=== PATIENT | male | born 1950 | race Caucasian/White ===

== ENCOUNTER 2025-04-05 12:03 | Emergency (ER) | payer MEDICARE, SELFPAY ==
[2025-04-05] VITALS (29 sets, daily range): BP systolic 161–212; BP diastolic 83–113; PULSE 54–67; TEMP 37; O2SAT 87–96; BMI 27.4
--- NOTE | 2025-04-05 12:22 | CT_ITS ---
The [address] [address] Patient Name: CHIO SALCEDO MRN: [id number] date: 1950 Sex: M Assigned Patient Location: ER Current Patient Location: ER Accession/Order Number: [id number] Exam Date: 04/05/2025 12:40 Report Date: 04/05/2025 13:13 At the request of: NEGRITO YOUNG MD Procedure: CT stroke head/brain wo con CT BRAIN /stroke WITHOUT CONTRAST: CLINICAL HISTORY: unable to focus vision, left-sided weakness COMPARISON: None TECHNIQUE: Contiguous axial unenhanced images were obtained through the brain. This CT exam was performed using one or more following dose reduction techniques: Automated exposure control, adjustment of the mA and/or kV according to patient size, or use of iterative reconstruction technique. FINDINGS: There is no evidence of midline shift, intra or extra-axial fluid collection, hemorrhage or CT evidence of acute large vascular distribution stroke. Central involutional changes and chronic small ischemic disease. Vascular calcification Visualized intraorbital contents appear unremarkable. Visualized paranasal sinuses are clear. The surrounding soft tissues are normal. CT/CT stroke head/brain wo con IMPRESSION: NO ACUTE INTRACRANIAL ABNORMALITY. CHRONIC MICROVASCULAR CHANGES Discussed with Clari over the telephone 1312 hours 04/05/2025 Impression dictated by: Gustavo Brooks M.D. 04/05/2025 1:13 PM Dictation Location: [place] [address] Electronically authenticated by: [id number] Y Date: 04/05/2025 13:13
--- NOTE | 2025-04-05 13:12 | CT_ITS ---
The [address] [address] Patient Name: CHIO SALCEDO MRN: [id number] date: 1950 Sex: M Assigned Patient Location: ED.MAIN Current Patient Location: ED.MAIN Accession/Order Number: [id number] Exam Date: 04/05/2025 14:10 Report Date: 04/05/2025 14:55 At the request of: NEGRITO YOUNG MD Procedure: CT angio head CT angiogram head and neck performed with contrast INDICATION: Left sided weakness stroke alert COMPARISON: None TECHNIQUE: CT angiogram images through the head and neck. Coronal and sagittal and 3-D reconstructions were performed. Evaluation degree of ICA narrowing was performed utilizing NASCET criteria. This CT exam was performed using one or more following dose reduction techniques: Automated exposure control, adjustment of the mA and/or kV according to patient size, or use of iterative reconstruction technique. FINDINGS: Two-vessel arch. Great vessels are patent. Common carotid arteries, carotid radiation and cervical ICAs are patent throughout their course. There is moderate plaque both bifurcations with without significant narrowing Codominant vertebral arteries. Intracranial ICAs are patent. Mild plaque intracranial ICAs. ACAs are patent. There is a 3 x 3 mm aneurysm involving the anterior communicating artery. MCAs are patent. Distal vertebral arteries, basilar artery, basilar tip and basilar bifurcation patent. 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 No Additional large vessel occlusion. 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 Discussed with Clari 1449 HOURS Impression dictated by: Gustavo Brooks M.D. 04/05/2025 2:55 PM Dictation Location: [place] [address] Electronically authenticated by: [id number] Y Date: 04/05/2025 14:55
--- NOTE | 2025-04-05 13:12 | CT_ITS ---
The [address] [address] Patient Name: CHIO SALCEDO MRN: [id number] date: 1950 Sex: M Assigned Patient Location: ED.MAIN Current Patient Location: ED.MAIN Accession/Order Number: [id number] Exam Date: 04/05/2025 14:10 Report Date: 04/05/2025 14:55 At the request of: NEGRITO YOUNG MD Procedure: CT angio head CT angiogram head and neck performed with contrast INDICATION: Left sided weakness stroke alert COMPARISON: None TECHNIQUE: CT angiogram images through the head and neck. Coronal and sagittal and 3-D reconstructions were performed. Evaluation degree of ICA narrowing was performed utilizing NASCET criteria. This CT exam was performed using one or more following dose reduction techniques: Automated exposure control, adjustment of the mA and/or kV according to patient size, or use of iterative reconstruction technique. FINDINGS: Two-vessel arch. Great vessels are patent. Common carotid arteries, carotid radiation and cervical ICAs are patent throughout their course. There is moderate plaque both bifurcations with without significant narrowing Codominant vertebral arteries. Intracranial ICAs are patent. Mild plaque intracranial ICAs. ACAs are patent. There is a 3 x 3 mm aneurysm involving the anterior communicating artery. MCAs are patent. Distal vertebral arteries, basilar artery, basilar tip and basilar bifurcation patent. 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 No Additional large vessel occlusion. 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 Discussed with Clari 1449 HOURS Impression dictated by: Gustavo Brooks M.D. 04/05/2025 2:55 PM Dictation Location: [place] [address] Electronically authenticated by: [id number] Y Date: 04/05/2025 14:55
--- NOTE | 2025-04-05 13:21 | ECG_ITS ---
The [facility] Test Date: 2025-04-05 Pat Name: CHIO SALCEDO Department: Room: - Gender: Male [employer]: : 1950 Requested By: [id number] Order Number: [id number] Reading MD: KARYNA GRULLON M.D. Measurements Intervals [place] Rate: 57 P: 26 UT: 186 QRS: 29 QRSD: 88 T: 68 QT: 414 QTc: 409 Interpretive Statements 1100 Sinus rhythm 1102 Sinus arrhythmia 9110 normal ECG No previous ECG available for comparison Electronically Signed On 04-05-2025 14:01:55 EDT by KARYNA GRULLON M.D.
--- NOTE | 2025-04-05 13:21 | XR_ITS ---
[address] [address] Patient Name: CHIO SALCEDO MRN: [id number] date: 1950 Sex: M Assigned Patient Location: ER Current Patient Location: ED.MAIN Accession/Order Number: [id number] Exam Date: 04/05/2025 13:30 Report Date: 04/05/2025 13:56 At the request of: NEGRITO YOUNG MD Procedure: XR chest 1V PA CHEST: CLINICAL HISTORY: CVA COMPARISON: None Unremarkable cardiomediastinal silhouette. Lungs are clear. No effusion or pneumothorax. Degenerative changes. XR/XR chest 1V IMPRESSION: Negative acute pleural-parenchymal disease. Impression dictated by: Gustavo Brooks M.D. 04/05/2025 1:56 PM Dictation Location: [place] [address] Electronically authenticated by: [id number] Y Date: 04/05/2025 13:56
[2025-04-05 13:31] LABS: Hematocrit 44.5 % (42.0-54.0); Hemoglobin 14.8 g/dL (14.0-18.0); Immature Granulocytes Abs Auto 0.02 10^3/uL (0.00-0.03); Immature Granulocytes Pct Auto 0.3 % (0.0-0.5); Lymphocytes Absolute Auto 3.0 10^3/uL (1.2-3.8); Mean Corpuscular HGB Conc 33.3 g/dL (29.9-35.2); Mean Corpuscular Hemoglobin 29.8 pg (25.9-34.0); Mean Corpuscular Volume 89.5 fL (80.0-94.0); Platelet Count 262 10^3/uL (150-450); Red Blood Count 4.97 10^6/uL (4.70-6.10); White Blood Count 7.9 10^3/uL (4.0-11.0)
[2025-04-05 13:37] LABS: Anion Gap 7.8; Blood Urea Nitrogen 20.0 mg/dL (7.0-18.0); Calcium 9.4 mg/dL (8.5-10.1); Carbon Dioxide 30.0 mmol/L (21.0-32.0); Chloride 104 mmol/L (98-107); Estimated GFR (African America >60 (>=60 mL/min/1.73m^2); Estimated GFR (Non-African Ame >60 (>=60 mL/min/1.73m^2); Glucose 108 mg/dL (74-106); Potassium 3.8 mmol/L (3.5-5.1); Sodium 138 mmol/L (136-145)
[2025-04-05] MEDS: ASPIRIN 81 MG TAB.CHEW 324 MG PO (13:46)
[2025-04-05] MEDS: CLOPIDOGREL BISULFATE 75 MG TABLET 300 MG PO (13:47)
[2025-04-05] MEDS: LABETALOL HCL 100 MG/20 ML MDV IVP (13:49)
--- NOTE | 2025-04-05 14:47 | ED.GENADUL1 ---
HPI HPI - General Adult General Chief complaint: Altered Mental Status Stated complaint: HARD TO FOCUS AND BODY IS TINGLING Time Seen by Provider: 04/05/25 12:17 Source: patient and family Mode of arrival: Wheelchair Limitations: no limitations History of Present Illness HPI narrative: 74-year-old male presented to the emergency department for weakness in his left arm and left leg. His gives some of the history as well as the patient. They report that about an hour before coming into the emergency department both arms started feeling tingling. He did not have his legs and did not have any headache and there was no trauma. He states it felt similar to when he had a brain bleed about 12 years ago. explains that he was intubated and was in an ICU for 3 days but it was an operable. He does not take blood thinners, in fact he does not take any medication at all. Symptoms started an hour ago and have been continuous. He states his vision is always blurred and that is not significantly different than previous. The patient tells me he has no symptoms in his legs. Related Data Home Medications ?Medication ?Instructions ?Recorded ?Confirmed No Known Home Medications 04/05/25 04/05/25 Allergies Allergy/AdvReac Type Severity Reaction Status Date / Time No Known Drug Allergies Allergy Verified 04/05/25 12:20 Review of Systems ROS Narrative A ten point review of systems is negative except as noted above. Exam Narrative Exam Narrative: Nurses note and vital signs reviewed and patient is not hypoxic. General: The patient appears in no apparent distress. Patient is resting comfortably on cart. Skin: Warm, dry, no pallor noted. There is no rash noted. Head: Normocephalic, atraumatic Eye: Normal conjunctiva, no drainage, EOMI. PERRL Ears, Nose, Mouth, and Throat: oral mucosa is moist. Nares patent. Cardiovascular: Regular Rate and Rhythm Respiratory: Patient is in no distress, no accessory muscle use, lungs are clear to auscultation, no wheezing, rales or rhonchi Back: non-tender GI: Soft and nontender Musculoskeletal: The patient has no evidence of calf tenderness, no pitting edema, symmetrical pulses noted bilaterally Neurological: A&O x4, normal speech; his right arm and right leg have intact muscle strength in all muscle groups. His left arm and left leg have significant weakness. He is able to move them but not lift them off of the bed. He has no ataxia in his right arm or right leg. Cranial nerves II through XII are intact. GCS is 15. Psychiatric: Cooperative NIH score is 4 Constitutional Vital Signs, click to edit/add: Last Vital Signs Temp 98.6 F 04/05/25 12:18 Pulse 57 L 04/05/25 14:40 Resp 14 04/05/25 14:40 BP 166/93 H 04/05/25 14:30 Pulse Ox 95 04/05/25 14:30 O2 Del Method Room Air 04/05/25 12:18 Course Vital Signs Vital signs: Vital Signs Temperature 98.6 F 04/05/25 12:18 Pulse Rate 57 L 04/05/25 12:18 Respiratory Rate 16 04/05/25 12:18 Blood Pressure 180/112 H 04/05/25 12:18 Pulse Oximetry 96 04/05/25 12:18 Oxygen Delivery Method Room Air 04/05/25 12:18 Temperature 98.6 F 04/05/25 12:18 Pulse Rate 57 L 04/05/25 14:40 Respiratory Rate 14 04/05/25 14:40 Blood Pressure 166/93 H 04/05/25 14:30 Pulse Oximetry 95 04/05/25 14:30 Oxygen Delivery Method Room Air 04/05/25 12:18 Medical Decision Making MDM Narrative Medical decision making narrative: The patient presented with strokelike symptoms with left arm and left leg weakness. NIH score is 4. 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 Case discussed with stroke team at [facility] and they are requesting the patient be flown to [facility] for intervention. They have also reviewed his CTA. The patient is agreeable and stable for transfer. Findings are discussed thoroughly with the patient and his . He is not a candidate for tPA because of previous intracranial hemorrhage. He was given aspirin and Plavix at the request of the stroke team and blood pressure control was given in the form of IV labetalol. Stroke team had requested to keep his blood pressure below 180 systolic. Differential Diagnosis Differential Diagnosis: Intracranial hemorrhage, nonhemorrhagic stroke Lab Data Lab results reviewed: Yes I reviewed the patient's lab results Labs: Lab Results 04/05/25 Range/Units 12:26 WBC 7.9 (4.0-11.0) 10^3/uL RBC 4.97 (4.70-6.10) 10^6/uL Hgb 14.8 (14.0-18.0) g/dL Hct 44.5 (42.0-54.0) % MCV 89.5 (80.0-94.0) fL MCH 29.8 (25.9-34.0) pg MCHC 33.3 (29.9-35.2) g/dL RDW 13.7 (11.0-15.0) % Plt Count 262 (150-450) 10^3/uL MPV 10.8 (9.5-13.5) fL Neut % (Auto) 48.1 (43.0-75.0) % Lymph % (Auto) 38.2 (20.5-60.0) % [facility] % (Auto) 10.6 (1.7-12.0) % Eos % (Auto) 2.2 (0.9-7.0) % Baso % (Auto) 0.6 (0.2-2.0) % Neut # (Auto) 3.8 (1.4-6.5) 10^3/uL Lymph # (Auto) 3.0 (1.2-3.8) 10^3/uL [facility] # (Auto) 0.8 (0.3-0.8) 10^3/uL Eos # (Auto) 0.2 (0.0-0.7) 10^3/uL Baso # (Auto) 0.1 (0.0-0.1) 10^3/uL Abs Immat Gran (auto) 0.02 (0.00-0.03) 10^3/uL Imm/Tot Granulo (auto) 0.3 (0.0-0.5) % Sodium 138 (136-145) mmol/L Potassium 3.8 (3.5-5.1) mmol/L Chloride 104 (98-107) mmol/L Carbon Dioxide 30.0 (21.0-32.0) mmol/L Anion Gap 7.8 BUN 20.0 H (7.0-18.0) mg/dL Creatinine 0.80 (0.70-1.30) mg/dL Est GFR ( Amer) >60 (>=60 mL/min/1.73m^2) Est GFR (Non-Af Amer) >60 (>=60 mL/min/1.73m^2) BUN/Creatinine Ratio 25.0 Glucose 108 H (74-106) mg/dL Calcium 9.4 (8.5-10.1) mg/dL Imaging Data CT scan - head: Radiologist's impression: ITS Impressions Brain CT 04/05/25 12:22 IMPRESSION: NO ACUTE INTRACRANIAL ABNORMALITY. CHRONIC MICROVASCULAR CHANGES Discussed with Clari over the telephone 1312 hours 04/05/2025 Impression dictated by: Gustavo Brooks M.D. 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 No Additional large vessel occlusion. 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 Discussed with Clari 1449 HOURS Impression dictated by: Gustavo Brooks M.D. 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 No Additional large vessel occlusion. 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 Discussed with Clari 1449 HOURS Impression dictated by: Gustavo Brooks M.D. 04/05/2025 2:55 PM Dictation Location: [facility] Electronically authenticated by: [id number] Y Date: 04/05/2025 14:55 Chest X-Ray 04/05/25 13:21 IMPRESSION: Negative acute pleural-parenchymal disease. Impression dictated by: Gustavo Brooks M.D. 04/05/2025 1:56 PM Dictation Location: [facility] Electronically authenticated by: [id number] Y Date: 04/05/2025 13:56 ECG Data Attestation: I personally reviewed and interpreted this ECG as follows: (EKG on my interpretation shows sinus rhythm with rate of 57 and no acute change) Critical Care Time Critical Care Time Critical Care Time: Yes Total Critical Care Time: 95 Attestation: Due to the high probability of sudden and clinically significant deterioration in the patient's condition he/she required the highest level of my preparedness to intervene urgently I provided critical care time including documentation time, medication orders and management, reevaluation, vital sign assessment, ordering and reviewing of lab tests, ordering and reviewing of x-ray studies, and admission orders. Aggregate critical care time is 95 minutes including only time during which I was engaged in work directly related to his/her care and did not include time spent treating other patients simultaneously. Discharge Plan Discharge Chief Complaint: Altered Mental Status Clinical Impression: Acute CVA (cerebrovascular accident) Patient Disposition: [facility] Time of Disposition Decision: 15:11 Discharge Location: [facility] Condition: Critical Mode of Transportation: [employer]
== END 2025-04-05 15:42 | disposition short-term general hospital (02) ==
PROVIDERS: Emergency Provider Emergency Medicine
DX: I62.9 Nontraumatic intracranial hemorrhage, unspecified (principal); R29.704 NIHSS score 4
CPT/HCPCS: 36415; 70450; 70496; 70498; 71045; 80048; 85025; 93005; 96374; 99285; J1290; Q9967